=== PATIENT | male | born 1955 | race Two or more races ===

== ENCOUNTER 2016-10-21 09:25 | Day surgery (SDC) | payer OTHER ==
[2016-10-19 12:28] LABS: Basophils # (auto) 0.1 uL; Basophils % (auto) 0.5 % (0.0-2.0); Eosinophils # (auto) 0.1 uL; Eosinophils % (auto) 1.2 % (0.0-7.0); Hematocrit 44.4 % (41.0-53.0); Hemoglobin 14.6 g/dL (13.5-17.5); Lymphocytes # (auto) 2.9 uL; Lymphocytes % (auto) 26.3 % (10.0-50.0); Mean Corpuscular Hemoglobin 28.4 pg (28.0-32.0); Mean Corpuscular Hgb Conc. 32.8 g/dL (32.0-36.0); Mean Corpuscular Volume 86.5 fL (80.0-100.0); Mean Platelet Volume 8.8 fL (7.4-10.4); Monocytes # (auto) 0.9 uL; Neutrophils # (auto) 7.2 uL; Platelet Count (auto) 349 10^3/uL (140-450); White Blood Cell 11.2 10^3/uL (4.4-10.8)
[2016-10-19 12:39] LABS: INR 0.94 (0.9-1.15); Partial Thromboplastin Time 27.8 sec (22.64-33.71); Prothrombin Time 10.2 sec (9.37-12.3)
[2016-10-19 12:48] LABS: Urine Bilirubin Negative (Negative); Urine Blood Negative /uL (Negative); Urine Color Yellow (Yellow); Urine Glucose Normal (Normal); Urine Ketone Negative (Negative); Urine Mucus FEW (None Seen); Urine Nitrite Negative (Negative); Urine RBC <1 /hpf (0 - 3); Urine Squamous Epithelial Cell FEW /hpf (<5); Urine Urobilinogen Normal (Negative)
[2016-10-19 12:59] LABS: Albumin 4.1 g/dL (3.4-5.0); BUN/Creatinine Ratio 12.4; Bilirubin, Total 0.7 mg/dL (0.2-1.0); Calcium 9.1 mg/dL (8.5-10.1); Potassium 4.2 mmol/L (3.5-5.1)
[~2016-10-21] VITALS: Ht 177.8 cm; Wt 86.2 kg
[~2016-10-21 09:25] MED LIST: LISI10TA6 PO; METF-314 PO; SIMV10TA84 PO; SITA100T7 PO
[2016-10-21] MEDS ORDERED: ceFAZolin 1GM/50ML D5W 50 ML IV ONE (10:03)
[2016-10-21] MEDS ORDERED: fentaNYL CITRATE 100 MCG/2 ML VL ONE (11:43)
[2016-10-21] MEDS ORDERED: MIDAZOLAM HCL 1MG/1ML-2 ML VIAL ONE (11:43)
[2016-10-21] MEDS ORDERED: PROPOFOL 10 MG/ML 20 ML IV ONE (11:44)
[2016-10-21] MEDS ORDERED: hydrALAZINE HCL 20 MG/ML VL IV PRN (12:15)
[2016-10-21] MEDS ORDERED: ONDANSETRON HCL 4 MG/2 ML VIAL IV ONE (12:15)
[2016-10-21] MEDS ORDERED: ePHEDrine SULFATE 50 MG/ML AMP IV PRN (12:15)
[2016-10-21 12:35] VITALS: BP 116/58
[2016-10-21] MEDS ORDERED: fentaNYL CITRATE 100 MCG/2 ML VL IV ONE (13:00)
== END 2016-10-21 12:38 | disposition home or self-care (01) ==
LOC: SUR 09:25
PROVIDERS: ATTEND Urology
DX: R97.20 Elevated prostate specific antigen [PSA] (principal); R56.9 Unspecified convulsions; E11.9 Type 2 diabetes mellitus without complications; I10 Essential (primary) hypertension; K21.9 Gastro-esophageal reflux disease without esophagitis; I11.9 Hypertensive heart disease without heart failure; Z90.49 Acquired absence of other specified parts of digestive tract
CPT/HCPCS: 36415; 55705; 76872; 80053; 81001; 82962; 85025; 85610; 85730; 87086; 87088; 87186; 88305; J0690; J2250; J2704; J3010

== ENCOUNTER 2023-09-01 09:15 | Emergency (ER) | payer MEDICARE, OTHER ==
[~2023-09-01] VITALS: Ht 177.8 cm; Wt 84.7 kg
[~2023-09-01 09:15] MED LIST changes: +LISI10TA34 PO; -LISI10TA6 PO; -METF-314 PO; +METF-371 PO; +SIMV10TA20 PO; -SIMV10TA84 PO
[2023-09-01 09:44] LABS: Urine Bacteria NONE SEEN /hpf (None Seen); Urine Blood 2+ /uL (Negative); Urine Clarity Clear (Clear); Urine Protein, UAD 1+ (Negative); Urine Specific Gravity 1.031 (1.001-1.035); Urine Urobilinogen Normal (Negative); Urine WBC 2 /hpf (0 - 3); Urine pH 5.5 (5.0-8.0)
[2023-09-01 09:46] LABS: Urine Color STRAW (Yellow)
[2023-09-01 09:50] VITALS: BP 139/85; PULSE 102; RESP 14; TEMP 97.6; O2SAT 98
[2023-09-01 10:23] LABS: Basophils # (auto) 0 10 ^3/uL (0-0.2); Basophils % (auto) 0.3 % (0.0-2.0); Eosinophils # (auto) 0 10 ^3/uL (0-0.8); Eosinophils % (auto) 0.1 % (0.0-7.0); Hematocrit 39.2 % (41.0-53.0); Lymphocytes # (auto) 1.5 10 ^3/uL (0.4-5.4); Lymphocytes % (auto) 10.2 % (10.0-50.0); Mean Corpuscular Hemoglobin 27.9 pg (28.0-32.0); Mean Corpuscular Hgb Conc. 33.2 g/dL (32.0-36.0); Mean Corpuscular Volume 84.1 fL (80.0-100.0); Monocytes # (auto) 1.7 10 ^3/uL (0-1.3); Monocytes % (auto) 11.6 % (0.0-12.0); Neutrophils # (auto) 11.3 10 ^3/uL (1.6-8.6); Neutrophils % (auto) 77.8 % (37.0-80.0); Red Blood Cells 4.67 10^6/uL (4.5-5.90); White Blood Cell 14.5 10^3/uL (4.4-10.8)
[2023-09-01 10:45] LABS: Chloride 101 mmol/L (98-107); Potassium 4.2 mmol/L (3.5-5.1); Sodium 131 mmol/L (136-145)
[2023-09-01 10:46] LABS: Anion Gap 4 (5-15); Calcium 9.5 mg/dL (8.5-10.1); Carbon Dioxide 26 mmol/L (20-30)
[2023-09-01 10:51] LABS: BUN/Creatinine Ratio 12.4 (10.0-20.0); Blood Urea Nitrogen 13 mg/dL (9-23); Glucose 336 mg/dL (74-106)
[2023-09-01] MEDS: SODIUM CHLORIDE 0.9% 1,000 ML IV ONE (11:15)
[2023-09-01] MEDS: InsuLIN REG 1unit/0.01ml Soln (100units/ml) IV ONE (12:16)
== END 2023-09-01 12:54 | disposition home or self-care (01) ==
LOC: ER 09:15
DX: N39.0 Urinary tract infection, site not specified (principal); E11.65 Type 2 diabetes mellitus with hyperglycemia; I10 Essential (primary) hypertension; Z91.041 Radiographic dye allergy status
CPT/HCPCS: 36415; 74176; 80048; 81001; 82962; 85025; 96361; 96374; 99285; J1815; J7030

== ENCOUNTER 2024-01-01 07:21 | Inpatient (IN) | payer MEDICARE, OTHER ==
[~2024-01-01] VITALS: Ht 175.3 cm; Wt 85.0 kg
[2024-01-01 07:56] LABS: Basophils # (auto) 0.1 10 ^3/uL (0-0.2); Basophils % (auto) 0.4 % (0.0-2.0); Eosinophils # (auto) 0.4 10 ^3/uL (0-0.8); Eosinophils % (auto) 2.1 % (0.0-7.0); Hematocrit 41.9 % (41.0-53.0); Lymphocytes % (auto) 11.4 % (10.0-50.0); Mean Corpuscular Hemoglobin 28.3 pg (28.0-32.0); Mean Corpuscular Hgb Conc. 33.4 g/dL (32.0-36.0); Mean Corpuscular Volume 84.8 fL (80.0-100.0); Monocytes # (auto) 2.2 10 ^3/uL (0-1.3); Monocytes % (auto) 12.7 % (0.0-12.0); Neutrophils # (auto) 12.7 10 ^3/uL (1.6-8.6); Neutrophils % (auto) 73.4 % (37.0-80.0); Red Blood Cells 4.95 10^6/uL (4.5-5.90); Red Cell Distribution Width 13.6 % (11.8-14.3); White Blood Cell 17.3 10^3/uL (4.4-10.8)
[2024-01-01 07:57] LABS: Chloride 102 mmol/L (98-107); Potassium 4.5 mmol/L (3.5-5.1); Sodium 130 mmol/L (136-145)
[2024-01-01 07:58] LABS: Anion Gap 4 (5-15); Carbon Dioxide 24 mmol/L (20-30)
[2024-01-01 07:59] LABS: Calcium 9.5 mg/dL (8.5-10.1)
[2024-01-01 08:03] LABS: BUN/Creatinine Ratio 7.2 (10.0-20.0); Blood Urea Nitrogen 8 mg/dL (9-23); Glucose 292 mg/dL (74-106)
[2024-01-01 09:50] VITALS: PULSE 63; RESP 16; O2SAT 96
[2024-01-01] MEDS: AZITHROMYCIN 500MG/ 250ML 250 ML IV ONE (10:21)
[2024-01-01] MEDS: PIPERACILLIN-TAZOB 3.375GM 100 ML IV ONE (11:56)
[2024-01-01] MEDS ORDERED: MORPHINE SULFATE 4 MG/ML SYR/VIAL IV PRN (13:30)
[2024-01-01] MEDS ORDERED: ONDANSETRON HCL 4 MG/2 ML VIAL IV PRN (13:30)
[2024-01-01] MEDS ORDERED: DEXTROSE (50%) 50ML SYRG IV PRN (13:30)
[2024-01-01] MEDS: cefTRIAXone 1GM/50ML D5W 50 ML IV ONE (13:30)
[2024-01-01] MEDS ORDERED: NITROGLYCERIN 0.4 MG SL TAB SL PRN ×2 (13:30)
[2024-01-01] MEDS: SODIUM CHLORIDE 0.9% 1,000 ML IV SCH (13:30)
[2024-01-01] MEDS ORDERED: MORPHINE SULFATE INJ 2 MG/ml SYRG IV PRN (13:30)
[2024-01-01 15:05] LABS: INR 1.05 (0.9-1.15); Prothrombin Time 11.1 sec (9.3-11.8)
[2024-01-01] MEDS ORDERED: INSU100I70 SC (16:17)
[2024-01-01] MEDS ORDERED: INSLISPI SC (16:17)
[2024-01-01] MEDS ORDERED: TAMS-35 PO (16:17)
[2024-01-01 16:26] LABS: COVID19 ANTIGEN SOFIA FIA NEGATIVE (NEGATIVE)
[2024-01-01 16:55] VITALS: BP 131/72; PULSE 95; RESP 17; TEMP 99.5; O2SAT 97
[2024-01-01] MEDS: ACCU-CHEK COMFORT CURVE STRIP VI SCH (17:35)
[2024-01-01] MEDS: InsuLIN REG 1unit/0.01ml Soln (100units/ml) SC SCH (17:36)
[2024-01-01 18:14] VITALS: BP 139/67; PULSE 90; RESP 18; TEMP 98.1; O2SAT 98
[2024-01-01] MEDS ORDERED: IOHEXOL 350 MG/ML 100ML IJ ONE (18:51)
[2024-01-01 20:00] VITALS: PULSE 96; RESP 18; O2SAT 98
[2024-01-01 21:00] VITALS: BP 135/69; PULSE 98; RESP 18; TEMP 100.8; O2SAT 94
[2024-01-01 21:30] VITALS: TEMP 99.3
[2024-01-01] MEDS: ENOXAPARIN SOD 100 MG/1 ML SYRINGE SC SCH (21:44)
[2024-01-01] MEDS: PATIENTS OWN MEDICATION (Simvastatin 10 MG) PO SCH (21:45)
[2024-01-02 05:00] VITALS: BP 118/73; PULSE 89; RESP 18; TEMP 99.2; O2SAT 91
[2024-01-02 06:52] LABS: Basophils # (auto) 0 10 ^3/uL (0-0.2); Basophils % (auto) 0.2 % (0.0-2.0); Eosinophils # (auto) 0.5 10 ^3/uL (0-0.8); Eosinophils % (auto) 4.1 % (0.0-7.0); Hematocrit 35.7 % (41.0-53.0); Hemoglobin 12.5 g/dL (13.5-17.5); Lymphocytes # (auto) 1.4 10 ^3/uL (0.4-5.4); Lymphocytes % (auto) 10.9 % (10.0-50.0); Mean Corpuscular Hemoglobin 29.4 pg (28.0-32.0); Mean Corpuscular Hgb Conc. 34.9 g/dL (32.0-36.0); Monocytes # (auto) 1.6 10 ^3/uL (0-1.3); Monocytes % (auto) 12.3 % (0.0-12.0); Neutrophils # (auto) 9.6 10 ^3/uL (1.6-8.6); Neutrophils % (auto) 72.5 % (37.0-80.0); Red Blood Cells 4.25 10^6/uL (4.5-5.90); Red Cell Distribution Width 13.1 % (11.8-14.3); White Blood Cell 13.2 10^3/uL (4.4-10.8)
[2024-01-02 06:58] LABS: Albumin 3.8 g/dL (3.2-4.8); Alkaline Phosphatase 71 U/L (46-116); Anion Gap 6 (5-15); Aspartate Aminotransferase < 8 U/L (13-40); BUN/Creatinine Ratio 12.1 (10.0-20.0); Bilirubin, Total 0.7 mg/dL (0.2-1.0); Blood Urea Nitrogen 11 mg/dL (9-23); Calcium 8.8 mg/dL (8.5-10.1); Carbon Dioxide 23 mmol/L (20-30); Chloride 105 mmol/L (98-107); Cholesterol 154 mg/dL (< 200); Glucose 193 mg/dL (74-106); HDL Cholesterol 35 mg/dL (40-59); LDL Cholesterol 101 mg/dL (< 100); Sodium 134 mmol/L (136-145); Total Protein 6.4 g/dL (5.7-8.2); Triglycerides 79 mg/dL (< 150)
[2024-01-02 06:59] LABS: Alanine Aminotransferase < 9 U/L (7-40)
[2024-01-02 07:30] VITALS: PULSE 83
[2024-01-02] MEDS: cefTRIAXone 1GM/50ML D5W 50 ML IV SCH (09:02)
[2024-01-02] MEDS: DOCUSATE SOD 100 MG CAP PO SCH (09:03)
[2024-01-02] MEDS: LISINOPRIL 5 MG TAB PO SCH (09:03)
[2024-01-02] MEDS: ASPirin 81 mg TAB PO SCH (09:03)
[2024-01-02] MEDS: AZITHROMYCIN 500MG/ 250ML 250 ML IV SCH (10:44)
[2024-01-02 11:49] LABS: Urine Bacteria None Seen /hpf (None Seen)
[2024-01-02 12:20] LABS: Amphetamine Screen, Urine Neg (NEGATIVE); Benzodiazephine Screen, Urine Neg (NEGATIVE)
[2024-01-02 12:21] LABS: Barbiturate Scree,Urine Neg (NEGATIVE); Cannabinoid Screen, Urine Neg (NEGATIVE); Cocaine Screen, Urine Neg (NEGATIVE); Opiate Scree,Urine Neg (NEGATIVE); Phencyclidine Screen, Urine Neg (NEGATIVE)
[2024-01-02 12:27] LABS: Urine Blood TRACE /uL (Negative); Urine Clarity Clear (Clear); Urine Color Light-Yellow (Yellow); Urine Protein, UAD Negative (Negative); Urine Specific Gravity 1.018 (1.001-1.035); Urine Urobilinogen Normal (Negative); Urine WBC <1 /hpf (0 - 3); Urine pH 6.5 (5.0-9.0)
[2024-01-02 13:18] VITALS: BP 120/70; PULSE 89; RESP 18; TEMP 98; O2SAT 95
[2024-01-02] MEDS: PANTOPRAZOLE 40 MG TAB PO ONE (14:43)
[2024-01-02] MEDS: CYANOCOBALAMIN (B-12) 1000 MCG/1 ML VIAL SUBCUT ONE (14:43)
[2024-01-02 16:25] VITALS: BP 122/71; PULSE 96; RESP 20; TEMP 99.9; O2SAT 94
[2024-01-02] MEDS: ERGOCALCIFEROL 50,000 UNIT(1.25MG) CAP PO SCH (17:31)
[2024-01-02 21:00] VITALS: BP 120/67; PULSE 95; RESP 19; TEMP 98.3; O2SAT 92
[2024-01-02] MEDS: PRAVASTATIN SODIUM 20 MG TAB PO SCH (21:23)
[2024-01-02] MEDS: ACETAMINOPHEN 325 MG TAB PO PRN (21:26)
[2024-01-02 23:26] LABS: Rapid Influenza A Negative (Negative); Rapid Influenza B Negative (Negative)
[2024-01-03 01:00] VITALS: BP_SYST 101; BP_SYST 132; BP_DIAS 55; BP_DIAS 73; PULSE 59; PULSE 82; RESP 18; RESP 19; TEMP 98.3; TEMP 98.4; O2SAT 93; O2SAT 98
[2024-01-03 05:00] VITALS: BP 113/64; PULSE 82; RESP 17; TEMP 98.2; O2SAT 95
[2024-01-03] MEDS: PANTOPRAZOLE 40 MG TAB PO SCH (06:14)
[2024-01-03 06:54] LABS: Anion Gap 12 (5-15); Carbon Dioxide 18 mmol/L (20-30); Chloride 104 mmol/L (98-107); Potassium 4.2 mmol/L (3.5-5.1); Sodium 134 mmol/L (136-145)
[2024-01-03 06:55] LABS: Calcium 9.3 mg/dL (8.7-10.4)
[2024-01-03 06:59] LABS: Basophils # (auto) 0 10 ^3/uL (0-0.2); Basophils % (auto) 0.2 % (0.0-2.0); Eosinophils # (auto) 0.6 10 ^3/uL (0-0.8); Eosinophils % (auto) 5.8 % (0.0-7.0); Hematocrit 38.2 % (41.0-53.0); Hemoglobin 13.1 g/dL (13.5-17.5); Lymphocytes # (auto) 1.4 10 ^3/uL (0.4-5.4); Lymphocytes % (auto) 12.9 % (10.0-50.0); Mean Corpuscular Hemoglobin 28.9 pg (28.0-32.0); Mean Corpuscular Hgb Conc. 34.3 g/dL (32.0-36.0); Mean Corpuscular Volume 84.3 fL (80.0-100.0); Monocytes # (auto) 1.3 10 ^3/uL (0-1.3); Monocytes % (auto) 11.9 % (0.0-12.0); Neutrophils # (auto) 7.6 10 ^3/uL (1.6-8.6); Neutrophils % (auto) 69.2 % (37.0-80.0); Red Blood Cells 4.52 10^6/uL (4.5-5.90); Red Cell Distribution Width 13.3 % (11.8-14.3)
[2024-01-03 07:00] LABS: BUN/Creatinine Ratio 12.1 (10.0-20.0); Blood Urea Nitrogen 11 mg/dL (9-23); Glucose 254 mg/dL (74-106)
[2024-01-03 09:04] VITALS: BP 143/75; PULSE 77; RESP 17; TEMP 98.7; O2SAT 94
[2024-01-03] MEDS: CYANOCOBALAMIN 500 MCG TAB PO SCH (10:24)
[2024-01-03] MEDS: ENOXAPARIN SOD 40 MG/0.4 ML SYRINGE SC SCH (10:25)
[2024-01-03 13:26] VITALS: BP 113/65; PULSE 62; RESP 16; TEMP 98.9; O2SAT 94
[2024-01-03] MEDS ORDERED: ERGO1CAP23 PO (13:40)
[2024-01-03] MEDS ORDERED: LEVO500T91 PO (13:40)
[2024-01-03] MEDS ORDERED: ACET-1882 PO (13:40)
[2024-01-03] MEDS ORDERED: CYAN500T3 PO (13:40)
[2024-01-03] MEDS ORDERED: PANT40T PO (13:40)
[2024-01-03 13:52] VITALS: BP 143/75; PULSE 62; RESP 16; TEMP 98.9; O2SAT 94
== END 2024-01-03 14:33 | disposition home or self-care (01) | DRG 871 ==
LOC: ER 07:21 → TELE 13:22 → TELE-EAST 16:42 → EAST 01-02 21:57
PROVIDERS: ADMIT Internal Medicine; ATTEND Emergency Medicine
DX: A41.50 Gram-negative sepsis, unspecified (principal); J15.69 Pneumonia due to other Gram-negative bacteria; J15.9 Unspecified bacterial pneumonia; E87.1 Hypo-osmolality and hyponatremia; J44.0 Chronic obstructive pulmonary disease with (acute) lower respiratory infection; E11.65 Type 2 diabetes mellitus with hyperglycemia; E78.5 Hyperlipidemia, unspecified; E55.9 Vitamin D deficiency, unspecified; E53.8 Deficiency of other specified B group vitamins; Z20.822 Contact with and (suspected) exposure to COVID-19; I10 Essential (primary) hypertension; Z82.0 Family history of epilepsy and other diseases of the nervous system; Z83.3 Family history of diabetes mellitus; Z91.041 Radiographic dye allergy status; Z90.49 Acquired absence of other specified parts of digestive tract
CPT/HCPCS: 36415; 71046; 71250; 80048; 80053; 80061; 80307; 81001; 82270; 82306; 82607; 82962; 83036; 83605; 83735; 84443; 84484; 85025; 85379; 85610; 87040; 87426; 87804; 93005; 93306; 93970; 99291; G0378; J1815; J2543